=== PATIENT | female | born 1940 | race Two or more races ===

== ENCOUNTER 2019-06-01 12:32 | Emergency (ER) | payer OTHER ==
[~2019-06-01] VITALS: Ht 142.2 cm; Wt 49.9 kg
[2019-06-01] MEDS ORDERED: ASPIRIN81 MG (12:39)
[2019-06-01] MEDS ORDERED: BREO ELLIPTA I1 EACH (12:39)
[2019-06-01] MEDS ORDERED: METFORMIN HCL500 MG (12:40)
[2019-06-01] MEDS ORDERED: TRINTELLIX10 MG (12:40)
[2019-06-01] MEDS ORDERED: CRESTOR20 MG (12:41)
== END 2019-06-01 14:31 | disposition home or self-care (01) ==
LOC: ER 12:32
DX: S61.451A Open bite of right hand, initial encounter (principal); W54.0XXA Bitten by dog, initial encounter; Y93.89 Activity, other specified; Y92.098 Other place in other non-institutional residence as the place of occurrence of the external cause; Y99.8 Other external cause status